=== PATIENT | female | born 1945 | race Caucasian/White ===

== ENCOUNTER 2018-08-09 16:26 | Observation (INO) | payer BC, MEDICARE ==
[~2018-08-09] VITALS: Ht 167.6 cm; Wt 59.0 kg
[~2018-08-09 16:26] MED LIST: BENICAR HCT 201 EACH PO; LISINOPRIL PO; LISINOPRIL40 MG PO; LOPRESSOR50 MG PO; LORTAB 10-5001 EACH PO; METOPROLOL TART25 MG; NORCO 10-325 T1 EACH; TRIBENZOR 20-51 EACH; TRIBENZOR 40-11 EAC1; TRIBENZOR PO; TYLENOL WITH C1 EACH PO
[2018-08-09] MEDS ORDERED: ONDANSETRON HCL INJ 2MG/ML 2ML 2 MG/ML VIAL IV ONE (16:46)
[2018-08-09] MEDS ORDERED: MORPHINE SULFATE INJ 4 MG/ML INJ 1ML IV ONE (17:00)
[2018-08-09] MEDS ORDERED: MORPHINE SULFATE 5 MG/ML VIAL IV ONE (17:00)
[2018-08-09] MEDS ORDERED: SODIUM CHLORIDE FLUSH 10 ML SYR INJ PRN (17:00)
--- NOTE | 2018-08-09 17:19 | NUR ---
NOTIFIED FINISH MACHINE TENDER TO PAGE ULTRASOUND FOR GALLBLADDER ULTRASOUND.
[2018-08-09 17:21] LABS: BASOPHILS # (AUTO) 0.1 (0.0-0.1); BASOPHILS % 0.4 % (0.0-1.0); EOSINOPHILS % 0.1 % (0.0-6.0); HEMATOCRIT 43.2 % (34.2-44.1); HEMOGLOBIN 14.2 g/dL (12.0-16.0); LYMPHOCYTES # (AUTO) 0.7 (1.0-3.2); LYMPHOCYTES % 4.4 % (18.0-39.1); MEAN CORPUSCULAR HEMOGLOBIN 28.6 pg (28-32); MEAN CORPUSCULAR HGB CONC 32.9 g/dL (31-35); MEAN CORPUSCULAR VOLUME 86.9 fL (81-99); MONOCYTES # (AUTO) 0.7 (0.2-0.8); MONOCYTES % 4.1 % (4.4-11.3); NEUTROPHILS # (AUTO) 15.3 (2.1-6.9); NEUTROPHILS % 90.6 % (38.7-80.0); PLATELET COUNT 259 x10e3/uL (140-360); RED BLOOD COUNT 4.97 x10e6/uL (3.6-5.1); RED CELL DISTRIBUTION WIDTH 14.3 % (11.7-14.4)
[2018-08-09] MEDS: SODIUM CHLORIDE 0.9% 1000ML 1,000 ML IV SCH ×2 (17:22→23:41)
[2018-08-09] MEDS ORDERED: LISINOPRIL10 MG PO (17:31)
--- NOTE | 2018-08-09 17:34 | NUR ---
NOTIFIED DR CHE BP 234/79, P 99 AFTER MORPHINE. LOPRESSOR 5MG IV ONCE ORDERED AT THIS TIME.
[2018-08-09 17:41] LABS: ALBUMIN 3.9 g/dL (3.5-5.0); ANION GAP 16.2 mmol/L (8-16); CALCIUM 9.4 mg/dL (8.4-10.2); CREATININE, SERUM 1.02 mg/dL (0.57-1.11); POTASSIUM 4.2 mmol/L (3.5-5.1)
[2018-08-09] MEDS ORDERED: METOPROLOL TARTRATE INJ 1 MG/ML VIAL IV ONE ×2 (17:45→18:00)
--- NOTE | 2018-08-09 17:59 | NUR ---
NOTIFIED DR CHE BP 229/80 P 81 AFTER X1 DOSE LOPRESSOR. LOPRESSOR 5MG IV ONCE ORDERED AT THIS TIME.
--- NOTE | 2018-08-09 18:03 | NUR ---
REGISTERED VETERINARY TECHNICIAN AT BEDSIDE FOR GALLBLADDER ULTRASOUND.
--- NOTE | 2018-08-09 18:21 | NUR ---
DR Eliazar BEGUM AT BEDSIDE FOR PATIENT EVAL AND DISCUSSING THE CURRENT PLAN OF CARE [facility] PATIENT AND FAMILY, VERBALIZED UNDERSTANDING.
[2018-08-09] MEDS ORDERED: ASPIRIN 81 MG CHEW TAB PO ONE (18:30)
--- NOTE | 2018-08-09 18:30 | NUR ---
NOTIFIED DR CHE BP 215/65, P 79. HYDRALAZINE 10MG IV ONCE ORDERED AT THIS TIME.
[2018-08-09] MEDS ORDERED: HYDRALAZINE HCL 20 MG/ML VIAL IV ONE (18:33)
[2018-08-09] MEDS ORDERED: HYDRALAZINE HCL 20 MG/ML VIAL ONE (18:38)
[2018-08-09 18:45] LABS: CREATINE KINASE MB 0.9 ng/mL (0-5.0)
--- NOTE | 2018-08-09 18:52 | NUR ---
VERBAL REPORT GIVEN TO AMBROCIO MORILLO.
--- NOTE | 2018-08-09 18:57 | Diagnostic Imaging Report ---
EXAM: RUQ ULTRASOUND Date: 08/09/2018 12:00 AM Indication: Pain Comparison: None Technique: Sonographic evaluation of the right upper quadrant. Color doppler was utilized to supplement evaluation. FINDINGS: LIVER: No focal lesion is identified. The liver measures 18.4 cm in the right midclavicular line. Echotexture is normal. BILIARY: Sludge and shadowing gallstones present. Gallbladder wall is mildly thickened 0.4 cm. The gallbladder is distended measuring 11.5 cm in length. The common bile duct measures 0.3 cm. PANCREAS: The pancreas is incompletely visualized due to overlying bowel gas, but no abnormality identified involving the visualized portions of the pancreas. RIGHT KIDNEY: Measures 9.8 cm in length. No hydronephrosis or solid mass lesion identified. PERITONEUM: No free fluid. VASCULATURE: Aorta: Visualized portions appear unremarkable. Interior vena cava: Visualized portions appear unremarkable. Portal Vein: Nondilated with hepatopedal flow. IMPRESSION: Cholelithiasis with mild wall thickening. Clinical/laboratory correlation for cholecystitis recommended. Mild hepatomegaly. Signed by: Dr. Noam Rueda MD on 08/09/2018 6:54 PM
[2018-08-09] MEDS ORDERED: METOPROLOL TARTRATE INJ 1 MG/ML VIAL IV PRN (19:15)
[2018-08-09] MEDS ORDERED: HYDROMORPHONE 2MG/ML 2 MG/ML ML IV PRN (19:15)
[2018-08-09] MEDS ORDERED: HYDROMORPHONE 1MG/1ML INJ IV PRN (19:15)
[2018-08-09] MEDS ORDERED: SERTRALINE HCL25 MG PO (19:41)
[2018-08-09] MEDS ORDERED: ONDANSETRON HCL INJ 2MG/ML 2ML 2 MG/ML VIAL ONE (19:56)
[2018-08-09] MEDS: PIPER-TAZ 3.375 GM 50 ML IV SCH (20:00)
[2018-08-09] MEDS ORDERED: ONDANSETRON HCL INJ 2MG/ML 2ML 2 MG/ML VIAL IV STA (20:01)
--- NOTE | 2018-08-09 20:08 | NUR ---
REPORT CALLED TO RN ROOM 114
--- NOTE | 2018-08-09 20:10 | NUR ---
PT CAME TO THE UNIT FROM ER IN A STRETCHER WITH C/O ABD.PAIN.ASSESSMENT DONE.NO REP.DISTRESS.PAIN VOICED 02/16.IV FLUID NS 125 INFUSING.IV TO LAC IS PATENT.PT THREW UP A LOT.INFORMED TO .RECEIVED NEW ORDERS.NPO ADVISED.ORIENTED TO THE UNIT.BED LOCKED AND IN LOWEST POSITION.PHONE AND CALL LIGHT WITHIN REACH.INSTRUCTED TO CALL FOR ASSISTANCE NEEDEED.
[2018-08-09 20:40] VITALS: BP 134/55
[2018-08-09] MEDS ORDERED: PROMETHAZINE 12.5MG/ NACL 0.9% 12.5 MG/50 ML BAG IV PRN (20:45)
[2018-08-09 20:49] VITALS: BP 134/55
[2018-08-09 20:50] VITALS: BP 134/55
[2018-08-10] VITALS (7 sets, daily range): BP systolic 116–185; BP diastolic 53–77
--- NOTE | 2018-08-10 01:08 | NUR ---
PT IS RESTING IN THE BED.STABLE CONDITION.NO VOMITING.MAINTAINING NPO FOR PROCEDURE.HIBICLENS BATH GIVEN.
[2018-08-10] MEDS: PIPER-TAZ 3.375 GM 50 ML IV SCH ×3 (02:32→21:56)
--- NOTE | 2018-08-10 05:05 | NUR ---
Signed the consent.pt voided.no pain voiced.no vomiting.stable condition.
--- NOTE | 2018-08-10 06:50 | NUR ---
REPORT GIVEN TO THE ONCOMING RN.WALKING ROUNDS DONE.STABLE CONDITION.
[2018-08-10] MEDS: SODIUM CHLORIDE 0.9% 1000ML 1,000 ML IV SCH ×2 (09:02→16:48)
--- NOTE | 2018-08-10 09:11 | NUR ---
MD Alejandro SERRANO IN HOSPITAL, MADE AWARE OF CURRENT VS
--- NOTE | 2018-08-10 09:30 | NUR ---
MD Mitch VILLARREAL INTO SEE PT, DISCUSSED POC, AWARE OF PT INTERMITTENT CONFUSION
[2018-08-10] MEDS ORDERED: CLONIDINE HCL 0.2 MG/24 HR 1 EA PATCH TOP NR (10:00)
--- NOTE | 2018-08-10 10:25 | NUR ---
MD Mitch VILLARREAL AT BEDSIDE, ORDERS NOTED
--- NOTE | 2018-08-10 10:41 | NUR ---
WHEELED OFF UNIT VIA BED FOR STAT CT, FAMILY AT SIDE
--- NOTE | 2018-08-10 11:05 | NUR ---
BACK IN ROOM VIA BED, NO CHANGE IN CONDITION, CALL LIGHT WITHIN REACH
[2018-08-10] MEDS ORDERED: FENTANYL CITRATE/PF 100MCG/2 ML INJ ONE (11:14)
[2018-08-10] MEDS ORDERED: MIDAZOLAM HCL 2 MG/2 ML VIAL ONE (11:14)
--- NOTE | 2018-08-10 11:17 | Diagnostic Imaging Report ---
EXAMINATION: Head CT HISTORY: Change in mental status, pain COMPARISON: Head CT on 07/20/2009 and brain MRI on 04/15/2013 TECHNIQUE: Multidetector axial images were obtained without contrast from the foramen magnum to the vertex . The images were reconstructed using brain and bone algorithms. Thin section brain images were reformatted into coronal and sagittal planes. Image quality: Motion/streaking artifact limits the evaluation of the skull base and posterior cranial fossa. Dose modulation, iterative reconstruction, and/or weight based adjustment of the mA/kV was utilized to reduce the radiation dose to as low as reasonably achievable. FINDINGS: Parenchyma: 1. Few scattered and mildly confluent mostly coronal radiata and periventricular white matter hypodensities, most likely nonspecific chronic microvascular ischemic changes are again noted. 2. No mass or hemorrhage. No CT evidence of acute territorial vascular insult. Extra-axial spaces:No abnormal density. No extra-axial fluid collections Brain volume: Normal for age. Ventricles: No hydrocephalus or displacement. Arteries: No density suggestive of thrombus. Dural sinuses: No abnormal density. Extra-axial spaces: No abnormal density. Foramen magnum: No mass, Chiari malformation, or basilar invagination. Sella: No obvious mass. Paranasal/mastoid sinuses: Imaged portions unremarkable. Skull/Scalp: No lytic or blastic lesions. No fractures. IMPRESSION: 1. No acute intracranial hemorrhage, mass, hydrocephalus or cortical infarcts. 2. No significant change [id number] chronic microvascular ischemic changes compared to head CT on 07/20/2009 Signed by: Dr. Chantell Simon M.D. on 08/10/2018 11:13 AM
--- NOTE | 2018-08-10 13:06 | NUR ---
WHEELED OFF UNIT VIA STRETCHER FOR OR, NO CHANGE IN CONDITION, FAMILY AT SIDE
--- NOTE | 2018-08-10 14:12 | NUR ---
CM SPOKE TO PATIENT AT BEDSIDE REGARDING ROJAS LETTER. ROJAS LETTER GIVEN WITH EXPLANATION. ORIGINAL SIGNED AND PLACED IN CHART; COPY OF ORIGINAL DOCUMENT GIVEN TO PATIENT AT BEDSIDE AND PLACED IN CARE TRANSITION FOLDER. CM CONTACT INFORMATION GIVEN TO PATIENT FOR ANY NEEDS OR CONCERNS. PATIENT WITH NO FURTHER QUESTIONS.
[2018-08-10] MEDS ORDERED: SUGAMMADEX SODIUM 200 MG/2 ML VIAL IV ONE (14:54)
[2018-08-10] MEDS ORDERED: IOPAMIDOL 610MG/1ML 300 MG/ML VIAL IV ONE (15:58)
[2018-08-10] MEDS: DEXTROSE 5%/LACTATED RINGERS 1,000 ML IV SCH (16:46)
[2018-08-10] MEDS ORDERED: ACETAMINOPHEN 1000 MG/100 ML IV PRN (17:00)
[2018-08-10] MEDS ORDERED: HYDROCODONE/APAP 7.5MG-325MG 1 EA TAB PO PRN (17:00)
[2018-08-10] MEDS ORDERED: ONDANSETRON HCL INJ 2MG/ML 2ML 2 MG/ML VIAL IV PRN (17:00)
[2018-08-10] MEDS ORDERED: MORPHINE SULFATE INJ 4 MG/ML INJ 1ML IV PRN (17:00)
[2018-08-10] MEDS ORDERED: PANTOPRAZOLE 40 MG 10ML VIAL IV SCH (17:00)
--- NOTE | 2018-08-10 17:27 | Diagnostic Imaging Report ---
Cholangiogram CPT code: 13905 Indication: Question retained stones. Technique: Multiple fluoroscopic spot images from cholangiogram provided for review. RADIATION DOSE: Fluoroscopy Time: 000.3 min Dose (Kerma) Area Product: 88.14 microGycm2 Air Kerma (AK) value has been reviewed. It is below the limits set by the Radiation Protocol Committee (RPC) committee. Comparison: Right upper quadrant ultrasound 08/09/2018 Findings: There is opacification of a tortuous but normal caliber cystic duct remnant. There is opacification of the common bile duct, which does not appear dilated. The opacified intrahepatic ducts do not appear dilated. There is significant smooth narrowing of the common channel at the expected location of the ampulla. There is spillage of contrast into the proximal duodenum. The proximal pancreas duct is opacified and is normal in morphology. There are no focal areas of narrowing or filling defects. IMPRESSION: 1. No evidence of retained stone. 2. 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 Signed by: Dr. Jair Cool MD on 08/10/2018 5:24 PM
--- NOTE | 2018-08-10 18:01 | NUR ---
BACK IN ROOM VIA STRETCHER, AMBULATED TO BED, RA AT THIS TIME, DENIES PAIN , VS WNL, SEE INTERVENTIONS, CALL LIGHT WITHIN REACH, FAMILY AT SIDE
--- NOTE | 2018-08-10 18:10 | Operative Report ---
DATE OF PROCEDURE: August 10, 2018 PREOPERATIVE DIAGNOSE 1. Acute cholecystitis. 2. Cholelithiasis. POSTOPERATIVE DIAGNOSES 1. Acute cholecystitis. 2. Cholelithiasis. 3. Gallbladder hydrops. OPERATIONS PERFORMED 1. Laparoscopic cholecystectomy. 2. Intraoperative cholangiograms DESKTOP TECHNICIAN: Dr. Teto Edge. ANESTHESIA: General endotracheal. COMPLICATIONS: None. DESCRIPTION OF PROCEDURE: With the patient lying in bed in the supine position under good general endotracheal anesthesia, the abdomen was prepped with Betadine solution and draped in the usual manner. Veress needle was introduced into the right upper quadrant and pneumoperitoneum was established without any difficulty. A 5-mm trocar was placed in the right subcostal region and a 5-mm video laparoscope was placed into the intra-abdominal cavity. Laparoscopy at this point revealed some adhesions to the anterior abdominal wall from the patient's previous lower abdominal surgery. The subumbilical space was free of any adhesions. An 11-mm trocar was then placed through the umbilicus and a 10-mm video laparoscope was placed into the intra-abdominal cavity. Two more 5-mm trocars were placed in the right subcostal region. Video laparoscopy at this point revealed that other than the pelvic adhesions, the gallbladder was tensely distended and it was covered up with omentum. It was thick-walled and edematous showing although the signs of acute cholecystitis. A needle was then used to decompress the gallbladder and this produced white bile consistent with gallbladder hydrops. There was a stone impacted at the neck of the gallbladder. The peritoneum overlying the neck of the gallbladder was then opened and the cystic duct was identified. Cystic duct was then followed to the junction with the common duct. The cystic duct was rather large. The common duct was similarly larger than normal size, so we decided to do a cholangiogram. A clip was then placed at the neck of the gallbladder and a small opening was made into the cystic duct and a cholangiogram catheter was introduced into the cystic duct. Under C-arm guidance, half-strength dye was introduced into the biliary tree, and this showed free flow of dye into the duodenum. The beginning of the pancreatic duct was also visualized. The common duct was distended, but there was no filling defects. The cholangiocath was then removed and the cystic duct was then doubly clipped and divided. The cystic artery was similarly doubly clipped and divided. Gallbladder was then slowly and carefully taken off the liver bed using the cautery scissors and perfect hemostasis was ascertained. There was quite a bit of edema and inflammation of the back wall of the gallbladder consistent with acute gangrenous cholecystitis. The gallbladder was totally removed from the liver bed and hemostasis was ascertained. The gallbladder was placed in a pouch and removed through the umbilicus without any difficulty. Video laparoscopy was then again carried out. The liver bed was found to be perfectly dry. All of the excess fluid was aspirated. The pneumoperitoneum was evacuated and all the trocars were removed under direct vision. The midline fascia at the umbilicus was then closed with a onzmgg-tl-ogyul of 0 Vicryl. All layers were infiltrated on the way out with solution of 0.25% Marcaine. Subcutaneous tissue was approximated with 3-0 Vicryl and the skin was closed with subcuticular 5-0 Vicryl. Benzoin, Steri-Strips and Band-Aids were applied. Sponge, lap and needle count was correct. Patient tolerated the procedure well and returned to the recovery room in stable condition. Job#: [id number] ROWAN
[2018-08-10] MEDS ORDERED: PROPOFOL IV EMULSION 10 MG/ML 20 ML VIAL ONE (18:45)
[2018-08-10] MEDS ORDERED: EPHEDRINE SULFATE INJ 50 MG/10 ML SYR ONE (18:45)
[2018-08-10] MEDS ORDERED: PHENYLEPHRINE HCL 1% 10 MG/ML VIAL ONE (18:45)
[2018-08-10] MEDS ORDERED: ROCURONIUM BROMIDE 10 MG/ML 5ML VIAL ONE (18:45)
[2018-08-10] MEDS ORDERED: LIDOCAINE HCL 2% LOCAL INJ 5 ML SDV VIAL INJ ONE (18:45)
[2018-08-10] MEDS ORDERED: ACETAMINOPHEN 1000 MG/100 ML IV ONE (18:45)
[2018-08-10] MEDS ORDERED: ONDANSETRON HCL INJ 2MG/ML 2ML 2 MG/ML VIAL ONE (18:45)
[2018-08-10] MEDS ORDERED: DEXAMETHASONE SOD PHOS INJ 4 MG/ML VIAL ONE (18:45)
--- NOTE | 2018-08-10 19:00 | NUR ---
received report from day nurse. patient is resting comfortably in bed. call light is within reach. will continue to monitor patient.
--- NOTE | 2018-08-10 19:14 | NUR ---
TOLERATING ICE CHIPS, DENIES PAIN AT THIS TIME, CALL LIGHT WITHIN REACH, BED ALARM ON
[2018-08-11] VITALS: BP 134/58
[2018-08-11] MEDS: PIPER-TAZ 3.375 GM 50 ML IV SCH ×2 (03:22→12:00)
[2018-08-11 04:00] VITALS: BP 177/72
[2018-08-11] MEDS: DEXTROSE 5%/LACTATED RINGERS 1,000 ML IV SCH (05:42)
[2018-08-11 06:32] LABS: BASOPHILS % 0.1 % (0.0-1.0); HEMATOCRIT 35.2 % (34.2-44.1); LYMPHOCYTES # (AUTO) 0.6 (1.0-3.2); LYMPHOCYTES % 4.8 % (18.0-39.1); MEAN CORPUSCULAR HEMOGLOBIN 29.6 pg (28-32); MEAN CORPUSCULAR HGB CONC 34.1 g/dL (31-35); MEAN CORPUSCULAR VOLUME 86.7 fL (81-99); MONOCYTES # (AUTO) 0.7 (0.2-0.8); MONOCYTES % 5.9 % (4.4-11.3); NEUTROPHILS # (AUTO) 10.7 (2.1-6.9); NEUTROPHILS % 88.8 % (38.7-80.0); PLATELET COUNT 213 x10e3/uL (140-360); RED BLOOD COUNT 4.06 x10e6/uL (3.6-5.1); RED CELL DISTRIBUTION WIDTH 14.4 % (11.7-14.4)
[2018-08-11 06:51] LABS: ALANINE AMINOTRANSFERASE 9 IU/L (0-55); ALBUMIN 2.6 g/dL (3.5-5.0); ALBUMIN/GLOBULIN RATIO 0.8 (0.8-2.0); ALKALINE PHOSPHATASE 55 IU/L (40-150); AMYLASE 18 U/L (25-125); ANION GAP 11.4 mmol/L (8-16); BLOOD UREA NITROGEN 14 mg/dL (7-26); BUN/CREATININE RATIO 16 (6-25); CALCIUM 8.8 mg/dL (8.4-10.2); CARBON DIOXIDE 24 mmol/L (22-29); CHLORIDE 106 mmol/L (98-107); EST GLOMERULAR FILTRATION RATE > 60 ML/MIN (60-); GLUCOSE 158 mg/dL (74-118); POTASSIUM 4.4 mmol/L (3.5-5.1); SODIUM 137 mmol/L (136-145)
--- NOTE | 2018-08-11 07:02 | NUR ---
report given to day nurse. patient is resting comfortably in bed. call jimenez is within reach
[2018-08-11 07:59] LABS: BAND NEUTROPHILS % (MANUAL) 1 %; LYMPHOCYTES % (MANUAL) 8 % (19-48); MONOCYTES % (MANUAL) 4 % (3.4-9.0); NEUTROPHILS % (MANUAL) 87 % (40-74); PLATELET ESTIMATE ADEQUATE; PLATELET MORPHOLOGY COMMENT NORMAL; RBC MORPHOLOGY COMMENT NORMAL
[2018-08-11 08:56] VITALS: BP 159/69
[2018-08-11] MEDS ORDERED: NON-FORMULARY MEDICATION (Sertraline Hcl 25 MG) PO SCH (09:00)
[2018-08-11] MEDS ORDERED: LISINOPRIL 10 MG TAB PO SCH (09:00)
[2018-08-11] MEDS ORDERED: SERTRALINE HCL 50 MG TAB PO SCH (09:00)
--- NOTE | 2018-08-11 10:52 | NUR ---
MD Kelli SERRANO INTO SEE PT, DISCUSSED DISCHARGE INSTRUCTIONS
[2018-08-11 12:00] VITALS: BP 172/66
[2018-08-11] MEDS ORDERED: LEVOFLOXACIN 500 MG TAB PO ONE (12:00)
[2018-08-11] MEDS ORDERED: LEVAQUIN500 MG PO (12:40)
[2018-08-11 13:11] VITALS: BP 172/66
--- NOTE | 2018-08-11 13:12 | NUR ---
DISCHARGE INSTRUCTIONS REVIEWED WITH PT AND DAUGHTER, VERBALIZED UNDERSTANDING, WHEELED OFF UNIT VIA WC , NO CHANGE IN CONDITION
== END 2018-08-11 13:18 | disposition home or self-care (01) ==
LOC: ER 16:26 → ERHOLD 17:12 → MED/SURG 20:22
PROVIDERS: ADMIT Surgery; ATTEND Surgery
DX: K80.13 Calculus of gallbladder with acute and chronic cholecystitis with obstruction (principal); K82.1 Hydrops of gallbladder; I10 Essential (primary) hypertension; I25.10 Atherosclerotic heart disease of native coronary artery without angina pectoris; M19.90 Unspecified osteoarthritis, unspecified site; F41.9 Anxiety disorder, unspecified; F17.210 Nicotine dependence, cigarettes, uncomplicated; I25.2 Old myocardial infarction; Z91.048 Other nonmedicinal substance allergy status; Z95.1 Presence of aortocoronary bypass graft
CPT/HCPCS: 36415 ×2; 47563; 70450; 74300; 76705; 80053 ×2; 82150; 82550; 82553; 84484; 85025 ×2; 88304; 93005; 96374; 96375; 99284; C1766; C9113; G0378 ×3; J0131; J0360; J1100; J1170; J2001; J2250; J2270; J2370; J2405 ×2; J2543 ×3; J2550; J2704; J7030 ×2; J7121 ×2; Q9967

== ENCOUNTER → 2021-10-21 | Outpatient (CLI) | payer MEDICARE ==
[~2021-10-21] MED LIST changes: +LEVAQUIN500 MG PO; +LISINOPRIL10 MG PO; +SERTRALINE HCL25 MG PO
== END ==
LOC: RAD 11:49
DX: M54.16 Radiculopathy, lumbar region (principal)
CPT/HCPCS: 72110

== ENCOUNTER 2022-03-21 12:10 | Inpatient (IN) | payer MEDICARE ==
[~2022-03-21] VITALS: Ht 167.6 cm; Wt 59.0 kg
[2022-03-21 13:01] LABS: BASOPHILS # (AUTO) 0.1 (0.0-0.1); BASOPHILS % 0.4 % (0.0-1.0); HEMATOCRIT 37.7 % (34.2-44.1); LYMPHOCYTES # (AUTO) 0.9 (1.0-3.2); LYMPHOCYTES % 2.8 % (18.0-39.1); MEAN CORPUSCULAR HEMOGLOBIN 29.1 pg (28-32); MEAN CORPUSCULAR HGB CONC 34.5 g/dL (31-35); MEAN CORPUSCULAR VOLUME 84.5 fL (81-99); MONOCYTES # (AUTO) 1.1 (0.2-0.8); MONOCYTES % 3.3 % (4.4-11.3); NEUTROPHILS # (AUTO) 29.3 (2.1-6.9); NEUTROPHILS % 92.1 % (38.7-80.0); PLATELET COUNT 274 x10e3/uL (140-360); RED BLOOD COUNT 4.46 x10e6/uL (3.6-5.1); RED CELL DISTRIBUTION WIDTH 14.5 % (11.7-14.4)
[2022-03-21 13:11] LABS: ALBUMIN 3.2 g/dL (3.5-5.0); ALBUMIN/GLOBULIN RATIO 0.9 (0.8-2.0); CREATININE, SERUM 1.45 mg/dL (0.57-1.11)
[2022-03-21] MEDS ORDERED: Morphine 4mg INJECTION 4 MG/ML INJ IV PRN (13:15)
[2022-03-21] MEDS ORDERED: ONDANSETRON HCL INJ 2MG/ML 2ML 2 MG/ML VIAL IV PRN (13:15)
[2022-03-21] MEDS ORDERED: SODIUM CHLORIDE 0.9% 1000ML 1,000 ML IV SCH (13:15)
[2022-03-21 13:21] LABS: CREATINE KINASE MB 0.9 ng/mL (0-5.0)
[2022-03-21 17:00] VITALS: BP 112/38
[2022-03-21 17:01] VITALS: BP 112/38
[2022-03-21 17:13] VITALS: BP 112/38
[2022-03-21] MEDS ORDERED: HYDROCHLOROTHIA25 MG PO (17:31)
[2022-03-21] MEDS ORDERED: SERTRALINE HCL50 MG PO (17:31)
[2022-03-21] MEDS ORDERED: ATORVASTATIN CA10 MG PO (17:31)
[2022-03-21] MEDS ORDERED: HYDROCODON-ACE1 EA12 (17:31)
[2022-03-21] MEDS ORDERED: CYCLOBENZAPRINE10 MG PO (17:31)
[2022-03-21] MEDS ORDERED: AMLODIPINE BESYL5 MG PO (17:31)
[2022-03-21] MEDS ORDERED: HYDROCODONE/APAP 7.5MG-325MG 1 EA TAB PO PRN (17:45)
[2022-03-21 20:21] VITALS: BP 141/53
[2022-03-21 20:23] LABS: CREATINE KINASE MB 0.9 ng/mL (0-5.0)
[2022-03-21] MEDS: ATORVASTATIN 10 MG TAB PO SCH (20:45)
[2022-03-21] MEDS: CYCLOBENZAPRINE HCL 10 MG TAB PO SCH (20:45)
[2022-03-21 21:00] VITALS: BP 141/53
[2022-03-22] VITALS (8 sets, daily range): BP systolic 108–138; BP diastolic 40–84
[2022-03-22 05:53] LABS: BASOPHILS # (AUTO) 0.1 (0.0-0.1); BASOPHILS % 0.2 % (0.0-1.0); EOSINOPHILS # (AUTO) 0.1 (0.0-0.4); EOSINOPHILS % 0.2 % (0.0-6.0); HEMATOCRIT 34.9 % (34.2-44.1); LYMPHOCYTES # (AUTO) 0.8 (1.0-3.2); LYMPHOCYTES % 3.7 % (18.0-39.1); MEAN CORPUSCULAR HEMOGLOBIN 29.8 pg (28-32); MEAN CORPUSCULAR HGB CONC 34.4 g/dL (31-35); MEAN CORPUSCULAR VOLUME 86.6 fL (81-99); MONOCYTES # (AUTO) 0.7 (0.2-0.8); MONOCYTES % 3.5 % (4.4-11.3); NEUTROPHILS # (AUTO) 18.6 (2.1-6.9); NEUTROPHILS % 91.5 % (38.7-80.0); PLATELET COUNT 236 x10e3/uL (140-360); RED BLOOD COUNT 4.03 x10e6/uL (3.6-5.1); RED CELL DISTRIBUTION WIDTH 14.4 % (11.7-14.4)
[2022-03-22 06:11] LABS: ALBUMIN 2.7 g/dL (3.5-5.0); ALBUMIN/GLOBULIN RATIO 0.8 (0.8-2.0); ANION GAP 13.7 mmol/L (8-16); CALCIUM 8.7 mg/dL (8.4-10.2); CREATININE, SERUM 1.18 mg/dL (0.57-1.11)
[2022-03-22 06:13] LABS: CREATINE KINASE MB 0.9 ng/mL (0-5.0)
[2022-03-22 06:14] LABS: POTASSIUM 2.7 mmol/L (3.5-5.1)
[2022-03-22] MEDS: POTASSIUM CHLORIDE 20MEQ/100ML 100 ML IV SCH ×3 (07:06→11:44)
[2022-03-22] MEDS ORDERED: POTASSIUM CHLORIDE 20 MEQ TAB CR PO ONE (07:15)
[2022-03-22] MEDS: HYDROCHLOROTHIAZIDE 25 MG TAB PO SCH (08:46)
[2022-03-22] MEDS: SERTRALINE HCL 50 MG TAB PO SCH (08:46)
[2022-03-22] MEDS: LISINOPRIL 10 MG TAB PO SCH (08:47)
[2022-03-22] MEDS: AMLODIPINE BESYLATE 5 MG TAB PO SCH (08:47)
[2022-03-22] MEDS: NICOTINE 14 MG/EA PATCH TOP SCH (08:48)
[2022-03-22 08:53] LABS: LYMPHOCYTES % (MANUAL) 3 % (19-48); MONOCYTES % (MANUAL) 1 % (3.4-9.0); NEUTROPHILS % (MANUAL) 96 % (40-74); PLATELET ESTIMATE ADEQUATE; PLATELET MORPHOLOGY COMMENT NORMAL; RBC MORPHOLOGY COMMENT NORMAL
[2022-03-22 15:02] LABS: CREATINE KINASE MB 0.8 ng/mL (0-5.0)
[2022-03-22] MEDS: CYCLOBENZAPRINE HCL 10 MG TAB PO SCH (20:08)
[2022-03-22] MEDS: ATORVASTATIN 10 MG TAB PO SCH (20:08)
[2022-03-23] VITALS (10 sets, daily range): BP systolic 93–129; BP diastolic 35–67
[2022-03-23 05:00] LABS: BASOPHILS % 0.2 % (0.0-1.0); EOSINOPHILS # (AUTO) 0.1 (0.0-0.4); EOSINOPHILS % 0.9 % (0.0-6.0); HEMATOCRIT 35.8 % (34.2-44.1); HEMOGLOBIN 11.3 g/dL (12.0-16.0); LYMPHOCYTES # (AUTO) 1.2 (1.0-3.2); LYMPHOCYTES % 9.5 % (18.0-39.1); MEAN CORPUSCULAR HEMOGLOBIN 28.9 pg (28-32); MEAN CORPUSCULAR HGB CONC 31.6 g/dL (31-35); MEAN CORPUSCULAR VOLUME 91.6 fL (81-99); MONOCYTES # (AUTO) 0.7 (0.2-0.8); MONOCYTES % 5.1 % (4.4-11.3); NEUTROPHILS # (AUTO) 10.7 (2.1-6.9); NEUTROPHILS % 83.6 % (38.7-80.0); PLATELET COUNT 244 x10e3/uL (140-360); RED BLOOD COUNT 3.91 x10e6/uL (3.6-5.1); RED CELL DISTRIBUTION WIDTH 14.5 % (11.7-14.4)
[2022-03-23 05:15] LABS: ANION GAP 13.1 mmol/L (8-16); CALCIUM 8.6 mg/dL (8.4-10.2); CREATININE, SERUM 1.07 mg/dL (0.57-1.11); POTASSIUM 3.1 mmol/L (3.5-5.1)
[2022-03-23] MEDS: AMLODIPINE BESYLATE 5 MG TAB PO SCH (08:56)
[2022-03-23] MEDS: LISINOPRIL 10 MG TAB PO SCH (08:56)
[2022-03-23] MEDS: SERTRALINE HCL 50 MG TAB PO SCH (08:56)
[2022-03-23] MEDS: HYDROCHLOROTHIAZIDE 25 MG TAB PO SCH (08:56)
[2022-03-23] MEDS: NICOTINE 14 MG/EA PATCH TOP SCH (08:58)
[2022-03-23] MEDS ORDERED: ONDANSETRON HCL 4 MG ORAL DISINTEGRATING TAB PO PRN (10:00)
[2022-03-23] MEDS ORDERED: SODIUM CHLORIDE 0.9% 250ML 250 ML ONE (12:31)
[2022-03-23] MEDS ORDERED: POTASSIUM CHLORIDE 20 MEQ TAB CR PO ONE ×2 (12:45→14:00)
[2022-03-23] MEDS: CYCLOBENZAPRINE HCL 10 MG TAB PO SCH (20:29)
[2022-03-23] MEDS: ATORVASTATIN 10 MG TAB PO SCH (20:29)
[2022-03-24] VITALS (8 sets, daily range): BP systolic 100–144; BP diastolic 40–76
[2022-03-24] MEDS: LISINOPRIL 10 MG TAB PO SCH (09:00)
[2022-03-24] MEDS: AMLODIPINE BESYLATE 5 MG TAB PO SCH (09:10)
[2022-03-24] MEDS: SERTRALINE HCL 50 MG TAB PO SCH (09:10)
[2022-03-24] MEDS: NICOTINE 14 MG/EA PATCH TOP SCH (09:10)
[2022-03-24] MEDS: HYDROCHLOROTHIAZIDE 25 MG TAB PO SCH (09:14)
[2022-03-24] MEDS ORDERED: ALBUTEROL/IPRATROPIUM 3 ML NEB NEB PRN (11:15)
[2022-03-24 11:55] LABS: BASOPHILS % 0.3 % (0.0-1.0); EOSINOPHILS # (AUTO) 0.1 (0.0-0.4); EOSINOPHILS % 0.8 % (0.0-6.0); HEMATOCRIT 37.7 % (34.2-44.1); HEMOGLOBIN 12.1 g/dL (12.0-16.0); LYMPHOCYTES # (AUTO) 0.7 (1.0-3.2); LYMPHOCYTES % 5.9 % (18.0-39.1); MEAN CORPUSCULAR HEMOGLOBIN 28.8 pg (28-32); MEAN CORPUSCULAR HGB CONC 32.1 g/dL (31-35); MEAN CORPUSCULAR VOLUME 89.8 fL (81-99); MONOCYTES # (AUTO) 0.5 (0.2-0.8); MONOCYTES % 4.3 % (4.4-11.3); NEUTROPHILS # (AUTO) 11.1 (2.1-6.9); NEUTROPHILS % 87.8 % (38.7-80.0); PLATELET COUNT 300 x10e3/uL (140-360); RED CELL DISTRIBUTION WIDTH 14.1 % (11.7-14.4)
[2022-03-24 12:34] LABS: ANION GAP 12.9 mmol/L (8-16); CALCIUM 9.3 mg/dL (8.4-10.2); CREATININE, SERUM 1.01 mg/dL (0.57-1.11); POTASSIUM 3.9 mmol/L (3.5-5.1)
[2022-03-24] MEDS: ATORVASTATIN 10 MG TAB PO SCH (21:51)
[2022-03-24] MEDS: CYCLOBENZAPRINE HCL 10 MG TAB PO SCH (21:51)
[2022-03-25] VITALS (8 sets, daily range): BP systolic 95–145; BP diastolic 37–73
[2022-03-25] MEDS: LISINOPRIL 10 MG TAB PO SCH (08:47)
[2022-03-25] MEDS: NICOTINE 14 MG/EA PATCH TOP SCH (08:53)
[2022-03-25] MEDS: SERTRALINE HCL 50 MG TAB PO SCH (08:53)
[2022-03-25] MEDS: HYDROCHLOROTHIAZIDE 25 MG TAB PO SCH (09:00)
[2022-03-25] MEDS: AMLODIPINE BESYLATE 5 MG TAB PO SCH (09:00)
[2022-03-25 10:48] LABS: BASOPHILS # (AUTO) 0.1 (0.0-0.1); BASOPHILS % 0.6 % (0.0-1.0); EOSINOPHILS # (AUTO) 0.1 (0.0-0.4); EOSINOPHILS % 0.9 % (0.0-6.0); HEMATOCRIT 33.2 % (34.2-44.1); LYMPHOCYTES # (AUTO) 0.9 (1.0-3.2); LYMPHOCYTES % 8.2 % (18.0-39.1); MEAN CORPUSCULAR HEMOGLOBIN 28.6 pg (28-32); MEAN CORPUSCULAR HGB CONC 33.1 g/dL (31-35); MEAN CORPUSCULAR VOLUME 86.2 fL (81-99); MONOCYTES # (AUTO) 0.8 (0.2-0.8); MONOCYTES % 7.3 % (4.4-11.3); NEUTROPHILS # (AUTO) 8.7 (2.1-6.9); NEUTROPHILS % 81.9 % (38.7-80.0); PLATELET COUNT 268 x10e3/uL (140-360); RED BLOOD COUNT 3.85 x10e6/uL (3.6-5.1); RED CELL DISTRIBUTION WIDTH 14.1 % (11.7-14.4)
[2022-03-25 11:32] LABS: ANION GAP 13.4 mmol/L (8-16); CALCIUM 9.1 mg/dL (8.4-10.2); CREATININE, SERUM 0.93 mg/dL (0.57-1.11); POTASSIUM 3.4 mmol/L (3.5-5.1)
[2022-03-25] MEDS: CYCLOBENZAPRINE HCL 10 MG TAB PO SCH (21:20)
[2022-03-25] MEDS: ATORVASTATIN 10 MG TAB PO SCH (21:20)
[2022-03-26] VITALS (8 sets, daily range): BP systolic 114–163; BP diastolic 41–68
[2022-03-26] MEDS: LISINOPRIL 10 MG TAB PO SCH (09:00)
[2022-03-26] MEDS: NICOTINE 14 MG/EA PATCH TOP SCH (09:32)
[2022-03-26] MEDS: SERTRALINE HCL 50 MG TAB PO SCH (09:33)
[2022-03-26] MEDS: HYDROCHLOROTHIAZIDE 25 MG TAB PO SCH (09:33)
[2022-03-26] MEDS: AMLODIPINE BESYLATE 5 MG TAB PO SCH (09:33)
[2022-03-26] MEDS: ATORVASTATIN 10 MG TAB PO SCH (20:29)
[2022-03-26] MEDS: CYCLOBENZAPRINE HCL 10 MG TAB PO SCH (20:29)
[2022-03-27] VITALS (8 sets, daily range): BP systolic 124–164; BP diastolic 52–70
[2022-03-27] MEDS: SERTRALINE HCL 50 MG TAB PO SCH (08:31)
[2022-03-27] MEDS: NICOTINE 14 MG/EA PATCH TOP SCH (08:31)
[2022-03-27] MEDS: LISINOPRIL 10 MG TAB PO SCH (08:32)
[2022-03-27] MEDS: AMLODIPINE BESYLATE 5 MG TAB PO SCH (08:32)
[2022-03-27] MEDS: HYDROCHLOROTHIAZIDE 25 MG TAB PO SCH (08:32)
[2022-03-27 08:43] LABS: BASOPHILS # (AUTO) 0.1 (0.0-0.1); BASOPHILS % 0.5 % (0.0-1.0); EOSINOPHILS # (AUTO) 0.2 (0.0-0.4); EOSINOPHILS % 1.3 % (0.0-6.0); HEMATOCRIT 38.5 % (34.2-44.1); HEMOGLOBIN 12.1 g/dL (12.0-16.0); LYMPHOCYTES % 8.2 % (18.0-39.1); MEAN CORPUSCULAR HEMOGLOBIN 28.4 pg (28-32); MEAN CORPUSCULAR HGB CONC 31.4 g/dL (31-35); MEAN CORPUSCULAR VOLUME 90.4 fL (81-99); MONOCYTES # (AUTO) 0.7 (0.2-0.8); MONOCYTES % 5.5 % (4.4-11.3); NEUTROPHILS # (AUTO) 9.9 (2.1-6.9); NEUTROPHILS % 83.2 % (38.7-80.0); PLATELET COUNT 319 x10e3/uL (140-360); RED BLOOD COUNT 4.26 x10e6/uL (3.6-5.1); RED CELL DISTRIBUTION WIDTH 13.9 % (11.7-14.4)
[2022-03-27 09:04] LABS: ANION GAP 19.1 mmol/L (8-16); CALCIUM 9.3 mg/dL (8.4-10.2); CREATININE, SERUM 0.95 mg/dL (0.57-1.11); POTASSIUM 4.1 mmol/L (3.5-5.1)
[2022-03-27] MEDS: ATORVASTATIN 10 MG TAB PO SCH (20:10)
[2022-03-27] MEDS: CYCLOBENZAPRINE HCL 10 MG TAB PO SCH (20:11)
[2022-03-28] VITALS (8 sets, daily range): BP systolic 119–154; BP diastolic 40–77
[2022-03-28 00:28] LABS: CLARITY,URINE CLEAR (CLEAR); COLOR,URINE YELLOW (YELLOW)
[2022-03-28 00:29] LABS: KETONES,URINE NEGATIVE (NEGATIVE); LEUKOCYTE ESTERASE ,URINE NEGATIVE (NEGATIVE); NITRITE,URINE NEGATIVE (NEGATIVE); PROTEIN,URINE DIPSTICK TRACE (NEGATIVE); URINE UROBILINOGEN 1 mg/dL (0.2 - 1)
[2022-03-28 00:30] LABS: BACTERIA,URINE RARE /HPF; EPITHELIAL CELLS,URINE MANY /LPF; RBC,URINE 0-5 /HPF (0-5)
[2022-03-28 06:23] LABS: BASOPHILS # (AUTO) 0.1 (0.0-0.1); BASOPHILS % 0.7 % (0.0-1.0); EOSINOPHILS # (AUTO) 0.2 (0.0-0.4); EOSINOPHILS % 2.3 % (0.0-6.0); HEMOGLOBIN 11.5 g/dL (12.0-16.0); LYMPHOCYTES # (AUTO) 1.2 (1.0-3.2); LYMPHOCYTES % 13.2 % (18.0-39.1); MEAN CORPUSCULAR HEMOGLOBIN 28.9 pg (28-32); MEAN CORPUSCULAR HGB CONC 32.9 g/dL (31-35); MEAN CORPUSCULAR VOLUME 87.9 fL (81-99); MONOCYTES # (AUTO) 0.6 (0.2-0.8); NEUTROPHILS # (AUTO) 6.5 (2.1-6.9); NEUTROPHILS % 75.1 % (38.7-80.0); PLATELET COUNT 325 x10e3/uL (140-360); RED BLOOD COUNT 3.98 x10e6/uL (3.6-5.1)
[2022-03-28 06:40] LABS: ANION GAP 18.5 mmol/L (8-16); CALCIUM 9.2 mg/dL (8.4-10.2); POTASSIUM 3.5 mmol/L (3.5-5.1)
[2022-03-28] MEDS: LISINOPRIL 10 MG TAB PO SCH (09:00)
[2022-03-28] MEDS: AMLODIPINE BESYLATE 5 MG TAB PO SCH (09:19)
[2022-03-28] MEDS: HYDROCHLOROTHIAZIDE 25 MG TAB PO SCH (09:19)
[2022-03-28] MEDS: SERTRALINE HCL 50 MG TAB PO SCH (09:19)
[2022-03-28] MEDS: NICOTINE 14 MG/EA PATCH TOP SCH (09:19)
[2022-03-28] MEDS: ATORVASTATIN 10 MG TAB PO SCH (20:55)
[2022-03-28] MEDS: CYCLOBENZAPRINE HCL 10 MG TAB PO SCH (20:56)
[2022-03-29] VITALS: BP 138/48
[2022-03-29 07:54] VITALS: BP 134/45
[2022-03-29 08:18] VITALS: BP 134/45
[2022-03-29] MEDS: NICOTINE 14 MG/EA PATCH TOP SCH (08:58)
[2022-03-29] MEDS: HYDROCHLOROTHIAZIDE 25 MG TAB PO SCH (08:58)
[2022-03-29] MEDS: AMLODIPINE BESYLATE 5 MG TAB PO SCH (08:59)
[2022-03-29] MEDS: SERTRALINE HCL 50 MG TAB PO SCH (08:59)
[2022-03-29] MEDS: LISINOPRIL 10 MG TAB PO SCH (08:59)
[2022-03-29 12:14] VITALS: BP 150/49
[2022-03-29 16:41] VITALS: BP 147/58
[2022-03-29 20:00] VITALS: BP 136/47
[2022-03-29] MEDS: ATORVASTATIN 10 MG TAB PO SCH (22:17)
[2022-03-29] MEDS: CYCLOBENZAPRINE HCL 10 MG TAB PO SCH (22:17)
[2022-03-30] VITALS: BP 93/51
[2022-03-30 04:00] VITALS: BP 154/43
[2022-03-30 05:50] VITALS: BP 93/51
[2022-03-30 05:56] LABS: BASOPHILS # (AUTO) 0.1 (0.0-0.1); BASOPHILS % 0.7 % (0.0-1.0); EOSINOPHILS # (AUTO) 0.2 (0.0-0.4); EOSINOPHILS % 2.1 % (0.0-6.0); HEMOGLOBIN 11.6 g/dL (12.0-16.0); LYMPHOCYTES # (AUTO) 1.4 (1.0-3.2); LYMPHOCYTES % 16.6 % (18.0-39.1); MEAN CORPUSCULAR HEMOGLOBIN 28.6 pg (28-32); MEAN CORPUSCULAR HGB CONC 31.4 g/dL (31-35); MEAN CORPUSCULAR VOLUME 91.4 fL (81-99); MONOCYTES # (AUTO) 0.6 (0.2-0.8); MONOCYTES % 7.6 % (4.4-11.3); NEUTROPHILS % 71.7 % (38.7-80.0); PLATELET COUNT 349 x10e3/uL (140-360); RED BLOOD COUNT 4.05 x10e6/uL (3.6-5.1); RED CELL DISTRIBUTION WIDTH 13.7 % (11.7-14.4)
[2022-03-30 06:13] LABS: ANION GAP 18.1 mmol/L (8-16); CALCIUM 9.2 mg/dL (8.4-10.2); CREATININE, SERUM 1.14 mg/dL (0.57-1.11); POTASSIUM 4.1 mmol/L (3.5-5.1)
[2022-03-30 08:32] VITALS: BP 148/61
[2022-03-30 08:51] VITALS: BP 148/61
[2022-03-30 08:53] VITALS: BP 103/62
[2022-03-30] MEDS: HYDROCHLOROTHIAZIDE 25 MG TAB PO SCH (09:05)
[2022-03-30] MEDS: LISINOPRIL 10 MG TAB PO SCH (09:05)
[2022-03-30] MEDS: AMLODIPINE BESYLATE 5 MG TAB PO SCH (09:05)
[2022-03-30] MEDS: SERTRALINE HCL 50 MG TAB PO SCH (09:05)
[2022-03-30] MEDS: NICOTINE 14 MG/EA PATCH TOP SCH (09:06)
== END 2022-03-30 11:30 | disposition home or self-care (01) | DRG 190 ==
LOC: ER 12:21 → ERHOLD 13:15 → MED/SURG3 16:17 → OBSVTOIN 03-22 09:46
DX: J44.0 Chronic obstructive pulmonary disease with (acute) lower respiratory infection (principal); J18.9 Pneumonia, unspecified organism; N17.9 Acute kidney failure, unspecified; R09.02 Hypoxemia; I10 Essential (primary) hypertension; M32.9 Systemic lupus erythematosus, unspecified; I25.10 Atherosclerotic heart disease of native coronary artery without angina pectoris; Z72.0 Tobacco use; Z95.1 Presence of aortocoronary bypass graft; Z91.041 Radiographic dye allergy status; Z20.822 Contact with and (suspected) exposure to COVID-19; M54.9 Dorsalgia, unspecified; G62.9 Polyneuropathy, unspecified; E87.6 Hypokalemia
CPT/HCPCS: 36415; 71045; 71046; 80048; 80053; 81001; 82550; 82553; 83605; 83880; 84484; 85025; 87040; 93005; 94760; 94799; 99284; G0378; J2543; J3480; J7030; J7050

== ENCOUNTER 2024-01-07 14:20 | Emergency (ER) | payer MEDICARE ==
[~2024-01-07] VITALS: Ht 167.6 cm; Wt 54.4 kg
[~2024-01-07 14:20] MED LIST changes: +AMLODIPINE BESYL5 MG PO; +ASPIRIN81 MG PO; +ATORVASTATIN CA10 MG PO; +CYCLOBENZAPRINE10 MG PO; +HYDROCHLOROTHIA25 MG PO; +HYDROCODON-ACE1 EA12; +PROVENTIL HFA6.7 GM INH; +SERTRALINE HCL50 MG PO; +VITAMIN D3 COM1 EACH PO
[2024-01-07 15:01] LABS: BASOPHILS % 0.1 % (0.0-1.0); HEMATOCRIT 39.7 % (34.2-44.1); HEMOGLOBIN 12.9 g/dL (12.0-16.0); LYMPHOCYTES # (AUTO) 0.7 (1.0-3.2); LYMPHOCYTES % 4.1 % (18.0-39.1); MEAN CORPUSCULAR HEMOGLOBIN 26.5 pg (28-32); MEAN CORPUSCULAR HGB CONC 32.5 g/dL (31-35); MEAN CORPUSCULAR VOLUME 81.5 fL (81-99); MONOCYTES # (AUTO) 0.9 (0.2-0.8); MONOCYTES % 5.2 % (4.4-11.3); NEUTROPHILS % 89.5 % (38.7-80.0); PLATELET COUNT 306 x10e3/uL (140-360); RED BLOOD COUNT 4.87 x10e6/uL (3.6-5.1); RED CELL DISTRIBUTION WIDTH 15.4 % (11.7-14.4); WHITE BLOOD COUNT 16.71 x10e3/uL (4.8-10.8)
[2024-01-07 15:18] LABS: ALBUMIN 3.2 g/dL (3.5-5.0); ALBUMIN/GLOBULIN RATIO 0.8 (0.8-2.0); ANION GAP 18.7 mmol/L (8-16); BILIRUBIN,TOTAL 0.5 mg/dL (0.2-1.2); CALCIUM 9.2 mg/dL (8.4-10.2); CREATININE, SERUM 1.56 mg/dL (0.57-1.11); TOTAL PROTEIN 7.1 g/dL (6.5-8.1)
[2024-01-07 15:24] LABS: TROPONIN I 0.052 ng/mL (0-0.300)
[2024-01-07 15:32] LABS: POTASSIUM 2.7 mmol/L (3.5-5.1)
[2024-01-07 15:38] LABS: BILIRUBIN,URINE 1+ (NEGATIVE); CLARITY,URINE CLOUDY (CLEAR); COLOR,URINE YELLOW (YELLOW); GLUCOSE, URINE NEGATIVE (NEGATIVE); KETONES,URINE NEGATIVE (NEGATIVE); LEUKOCYTE ESTERASE ,URINE NEGATIVE (NEGATIVE); NITRITE,URINE NEGATIVE (NEGATIVE); PH,URINE 6 (5 - 7); PROTEIN,URINE DIPSTICK 2+ (NEGATIVE); URINE UROBILINOGEN 0.2 mg/dL (0.2 - 1)
[2024-01-07 15:49] LABS: BACTERIA,URINE MANY /HPF; RBC,URINE 0-5 /HPF (0-5)
[2024-01-07 15:50] LABS: EPITHELIAL CELLS,URINE MODERATE /LPF; TRANSITIONAL EPI CELLS,URINE FEW
[2024-01-07] MEDS: POTASSIUM CHLORIDE 20 MEQ TAB CR PO STA (16:11)
[2024-01-07] MEDS: POTASSIUM CHLORIDE 20MEQ/100ML 50 ML IV ONE (16:12)
[2024-01-07] MEDS: SODIUM CHLORIDE 0.9% 1000ML 1,000 ML IV STA (16:12)
[2024-01-07] MEDS ORDERED: CEFDINIR300 MG PO (16:59)
[2024-01-07 18:58] VITALS: PULSE 71; RESP 18; TEMP 98.5; O2SAT 98
== END 2024-01-07 19:00 | disposition home or self-care (01) ==
LOC: ER 14:33
DX: N39.0 Urinary tract infection, site not specified (principal); E87.6 Hypokalemia; I10 Essential (primary) hypertension; J44.9 Chronic obstructive pulmonary disease, unspecified; G89.29 Other chronic pain; M54.9 Dorsalgia, unspecified; I25.2 Old myocardial infarction; Z95.1 Presence of aortocoronary bypass graft
CPT/HCPCS: 36415; 70450; 71045; 80053; 81001; 82948; 84484; 85025; 99284; J3480; J7030; U0002